=== PATIENT | female | born 1995 | race Caucasian/White ===

== ENCOUNTER → 2024-07-26 | Day surgery (SDC) | payer BC ==
[2024-07-20 11:22] VITALS: BMI 26.5
[~2024-07-26] MED LIST: ACETAMINOPHEN INJECTION 100 ML ONE; DEXAMETHASONE SOD PHOSPHATE 4 MG/1 ML VIAL ONE; GLYCOPYRROLATE 0.2 MG/1 ML VIAL ONE; LACTATED RINGERS SOLUTION 1,000 ML IV SCH; LIDOCAINE 1%/EPI 1:100000 (20 ML MULTI DOSE VIAL) ONE; MIDAZOLAM HCL 2 MG/2 ML SINGLE DOSE VIAL ONE; NEOSTIGMINE METHYLSULFATE 0.5 MG/1 ML - 10 ML MDV ONE; ONDANSETRON 4 MG/2 ML VIAL IVPUSH PRN; ONDANSETRON 4 MG/2 ML VIAL ONE; PROPOFOL 20 ML ONE; ROCURONIUM BROMIDE 50 MG/5 ML SYRINGE ONE; oxyCODONE HCL 5 MG TABLET ONE
[2024-07-26] MEDS: ceFAZolin SODIUM 1 GM VIAL IVPB ONE (10:50)
[2024-07-26] MEDS: oxyCODONE HCL 5 MG TABLET PO PRN (14:58)
[2024-07-26 16:55] VITALS: BP 109/63; PULSE 87; RESP 18; TEMP 97.7
== END | disposition home or self-care (01) ==
LOC: JASU-SURG 03:53
PROVIDERS: ATTEND Otolaryngology
PROC: 0CTQ0ZZ Resection of Adenoids, Open Approach (ICD-10-PCS; 2024-07-26)
PROC: 0CTPXZZ Resection of Tonsils, External Approach (ICD-10-PCS; principal; 2024-07-26 10:15)
DX: J35.03 Chronic tonsillitis and adenoiditis (principal)
CPT/HCPCS: 94760; J0131